=== PATIENT | male | born 1970 | race Caucasian/White ===

== ENCOUNTER 2018-07-13 04:59 | Inpatient (IN) ==
[2018-07-07 13:54] LABS: Appearance,Urine CLEAR; Bilirubin,Urine NEG (NEG); Color,Urine YELLOW; Glucose,Urine (UA) NEGATIVE (NEG); Leukocyte Esterase,Urine NEG /uL (NEG); Protein,Urine NEG (NEG); Specific Gravity,Urine 1.016 (1.000-1.035); Urine Blood NEG mg/dL (<0.03); Urobilinogen,Urine NEG (NEG)
[2018-07-07 15:24] LABS: Blood Urea Nitrogen 16 mg/dl (6-20)
[2018-07-07 15:40] LABS: Basophils # (Auto) 0 K/mcL (0.0-0.3); Basophils % (Auto) 0.6 % (0.0-2.0); Eosinophils # (Auto) 0.4 K/mcL (0.0-0.7); Granulocytes % (Auto) 48.5 % (38.0-78.0); Lymphocytes # (Auto) 2.2 K/mcL (1.5-4.8); Mean Cell Volume 89.1 fL (80.0-100.0); Mean Corpuscular HGB Conc 32.8 g/dL (31.0-36.0); Monocytes # (Auto) 0.6 K/mcL (0.1-0.9); Monocytes % (Auto) 9.9 % (1.0-12.0); Platelet Count 294 K/mcL (140-440); RBC 5.64 M/mcL (4.50-5.90); Red Cell Distribution Width 13.7 % (11.5-14.5)
[2018-07-13] MEDS ORDERED: ceFAZolin 1 GM VIAL IV SCH (05:00)
[2018-07-13] MEDS ORDERED: SCOPOLAMINE 1 PATCH PATCH TOPICAL ONE (06:00)
[2018-07-13] MEDS ORDERED: PHENYLEPHRINE 10 MG/ML VIAL IV ONE (07:25)
[2018-07-13] MEDS ORDERED: ROPIVACAINE HCL/PF 20 ML VIAL IJ ONE (07:25)
[2018-07-13] MEDS ORDERED: TRANEXAMIC ACID 1,000 MG/10 ML VIAL IV ONE ×3 (07:25→09:20)
[2018-07-13] MEDS ORDERED: FAMOTIDINE/PF 20 MG/2 ML VIAL IV ONE (07:25)
[2018-07-13] MEDS ORDERED: KETAMINE 100 MG/ML ML IV ONE (07:25)
[2018-07-13] MEDS ORDERED: ePHEDrine 50 MG/ML AMPUL IV ONE (07:25)
[2018-07-13] MEDS ORDERED: GLYCOPYRROLATE 0.2 MG/ML VIAL IV ONE (07:25)
[2018-07-13] MEDS ORDERED: MIDAZOLAM 5 MG/5 ML VIAL IV ONE (07:25)
[2018-07-13] MEDS ORDERED: LIDOCAINE HCL/PF 100 MG/5 ML SYRINGE IV ONE (07:25)
[2018-07-13] MEDS ORDERED: DEXAMETHASONE 10 MG/ML VIAL IV ONE (07:25)
[2018-07-13] MEDS ORDERED: ONDANSETRON 4 MG/2 ML VIAL IV ONE (07:25)
[2018-07-13] MEDS ORDERED: PROPOFOL 200 MG/20 ML VIAL IV ONE (07:25)
[2018-07-13] MEDS ORDERED: 0.9 % SODIUM CHLORIDE 9 ML, KETOROLAC 30 MG, ROPIVACAINE HCL/PF 49.5 ML, EPINEPHrine 0.... IJ ONE (07:47)
[2018-07-13] MEDS ORDERED: GENTAMICIN SULFATE 800 MG/20 ML VIAL IR ONE (08:06)
[2018-07-13] MEDS ORDERED: MEPERIDINE 25 MG/ML SYRINGE IV PRN (08:54)
[2018-07-13] MEDS ORDERED: FLUMAZENIL 0.1 MG/ML ML IV PRN (08:54)
[2018-07-13] MEDS ORDERED: ACETAMINOPHEN 1,000 MG/100 ML BOTTLE IV ONE (08:54)
[2018-07-13] MEDS ORDERED: LACTATED RINGERS 250 ML IV PRN (08:54)
[2018-07-13] MEDS ORDERED: PROMETHAZINE 25 MG/ML VIAL IV PRN (08:54)
[2018-07-13] MEDS ORDERED: NALOXONE HCL 0.4 MG/ML VIAL IV PRN (08:54)
[2018-07-13] MEDS ORDERED: METHOCARBAMOL 1,000 MG/10 ML VIAL IV PRN (08:54)
[2018-07-13] MEDS ORDERED: KETOROLAC 30 MG/ML VIAL IV PRN (08:54)
[2018-07-13] MEDS ORDERED: fentaNYL 100 MCG/2 ML VIAL IV PRN (08:54)
[2018-07-13] MEDS ORDERED: ONDANSETRON 4 MG/2 ML VIAL IV PRN ×2 (08:54→09:20)
[2018-07-13] MEDS ORDERED: BENZOCAINE/MENTHOL 1 LOZENGE PO PRN ×2 (08:54→09:20)
[2018-07-13] MEDS ORDERED: IPRATROPIUM/ALBUTEROL 3 ML AMPUL.NEB NEB PRN (08:54)
[2018-07-13] MEDS ORDERED: HYDROmorphone 2 MG/ML VIAL IV PRN (08:54)
[2018-07-13] MEDS ORDERED: LACTATED RINGERS 1,000 ML IV SCH (09:00)
[2018-07-13] MEDS ORDERED: ONDANSETRON 4 MG ODT TABLET SL PRN (09:20)
[2018-07-13] MEDS ORDERED: METHOCARBAMOL 750 MG TABLET PO PRN (09:20)
[2018-07-13] MEDS ORDERED: FLEETS ADULT ENEMA PR PRN (09:20)
[2018-07-13] MEDS ORDERED: POLYETHYLENE GLYCOL 3350 17 GM PACKET PO PRN (09:20)
[2018-07-13] MEDS ORDERED: HYDROcodone/APAP 10/325MG TABLET PO PRN (09:20)
[2018-07-13] MEDS ORDERED: BISACODYL 10 MG SUPP.RECT PR PRN (09:20)
[2018-07-13] MEDS ORDERED: MAGNESIUM HYDROXIDE 30 ML ORAL.SUSP PO PRN (09:20)
--- NOTE | 2018-07-13 09:20 | Brief Operative Note ---
Pre-op diagnosis: left knee osteoarthrits Post-op diagnosis: same Procedure: left total knee arthroplasty, hardware removal Grafts/Implants: Yes Anesthesia: spinal Complications: none Surgeon: Andrea Vines Supervisor Of Operations: Nataly Roy Estimated blood loss (cc): 200 Tourniquet Time (Minutes): 77 Specimens Removed/Pathology: none sent Condition: stable Disposition: PACU
--- NOTE | 2018-07-13 09:55 | Operative Note ---
DATE OF OPERATION: 07/13/2018 PREOPERATIVE DIAGNOSES: 1. Degenerative joint disease, left knee. 2. Left knee retained hardware. POSTOPERATIVE DIAGNOSES: 1. Degenerative joint disease, left knee. 2. Left knee retained hardware. PROCEDURES: 1. Left total knee arthroplasty. 2. Left knee hardware removal. SURGEON: Amanda Vines M.D. PACKAGE SEALER SURGEON: Nataly Roy PA-C ANESTHESIA: Spinal with LMA assist. ESTIMATED BLOOD LOSS: 200 mL COMPLICATIONS: None noted. SPECIMENS REMOVED: None. DRAINS: None. TOURNIQUET TIME: 77 minutes at 300 mmHg. IMPLANTS: DePuy CMW2 bone cement 20 grams x4, DePuy Attune tibial insert fixed bearing posterior stabilized size 8, 6 mm AOX, DePuy patella medialized dome 38 mm cemented AOX, DePuy Attune tibial fixed bearing size 6 cemented, DePuy Attune femoral posterior stabilized size 8 left cemented. INDICATIONS: The patient has had a long-standing history of worsening pain in the knee that has failed conservative treatment. Radiographs have confirmed advanced degenerative joint disease. After a long discussion about treatment options, the patient elected to proceed with a knee arthroplasty. The risks and benefits were discussed with the patient in detail including, but not limited to, the risks of anesthesia, problems with the heart or lungs related to anesthesia, infection, compromise or injury to the nerves and blood vessels, deep venous thrombosis, pulmonary embolism, pneumonia, continued pain after surgery, worsening pain or symptoms after surgery, swelling, loss of motion, instability, leg length discrepancy, and need for repeat surgery. DESCRIPTION OF PROCEDURE: The patient was seen in the pre-anesthesia waiting room where all questions were answered and the correct side and site were identified and marked. The patient was transferred to the operating room and administered the anesthetic and given pre-operative antibiotics. A time-out was then called. The extremity was prepped and draped, exsanguinated, and the tourniquet was inflated to 300 mmHg. A midline skin incision was then made with a standard medial parapatellar arthrotomy. Debridement of the menisci, ACL, and PCL was performed followed by balancing releases in the medial lateral plane. We then established intramedullary access to both the femur and tibia in a standard fashion. The femoral guide jacque was initially placed with the distal femoral guide, pinned into place, and the distal femoral cut was performed and checked with a flat plate. We then turned our attention to the tibia. I came down to the screw in the anterior medial tibia. This was a small frag head. We backed the screw out and removed it so we could access the intramedullary canal. The intramedullary guide was placed with the proximal tibial cutting block. The block was appropriately positioned off the affected side, varus and valgus was checked with the extra-medullary guide, and the block was pinned into place. The proximal tibial cut was performed and the tibia was prepared for the tibial implant with appropriate rotation. The tibia, femur, and posterior compartment were debrided of osteophytes, loose bodies, and meniscal fragments We then used the gap balancing technique to balance extension with the first two cuts and good balancing was obtained with a 10 millimeter gap block. We turned our attention back to the femur and used the referencing block and implant to size appropriately. Using the gap balancing technique for the flexion space we set our rotation of the femur off the tibial cut. Anesthesia gave the patient 1 gram of Tranexamic Acid via an intravenous route. We placed the 4 in 1 cutting block and made anterior, posterior, and chamfer cuts. Box plasty cuts were then made in a standard fashion for the posterior stabilized prosthesis. We then completed osteophyte release and posterior capsule release from the posterior compartment. Trials were placed and we chose the polyethylene insert thickness that provided the best stability in all planes. With the trials in place, we did a measured resection for a resurfacing patella. We sized the patella and placed the patella trial and performed a lateral facetectomy with the saw and rongeur. Good tracking was obtained. We removed all trials, irrigated and dried all cut surfaces. We cemented the components into place including tibia, femur and patella. We placed a trial liner and held the knee in full extension with the patella compressed while the cement cured. We then removed all excess cement and placed the final polyethylene tibiofemoral component. Irrigation with 3 liters of antibiotic saline was then performed using jet-lavage. We let the tourniquet down and coagulated bleeding vessels. We injected a 100 cubic centimeter volume including Ropivacaine 49.25 cubic centimeters at 5 milligrams per cubic centimeter, Ketorolac 30 milligrams, and Epinephrine 0.5 milligrams into 100 cubic centimeters volume of normal saline. We closed the retinaculum with #2 Stratafix and 0 Vicryl. We closed the subcutaneous tissue and skin in layers out to Dermabond on the skin. A sterile pressure dressing was applied. All needle and sponge counts were correct. The patient was transferred to the recovery room in stable condition. [email or web address]:[email or web address] Job ID: [id number] Doc ID: [id number] Amanda Vines MD
--- NOTE | 2018-07-13 10:19 | XRay Report ---
CLINICAL INFORMATION: Status post left total knee arthroplasty TECHNIQUE: AP and crosstable lateral left knee COMPARISON: None. FINDINGS: Status post left total knee arthroplasty. Anatomic alignment demonstrated. Mild postsurgical intra-articular and soft tissue gas IMPRESSION: Status post left total knee arthroplasty Interpreted and Authenticated by: Andrea Randle 07/13/18
[2018-07-13] MEDS: 0.9 % SODIUM CHLORIDE 1,000 ML IV SCH ×2 (12:23→17:18)
[2018-07-13] MEDS: KETOROLAC 30 MG/ML VIAL IV SCH ×3 (12:23→23:35)
[2018-07-13] MEDS: 0.9 % SODIUM CHLORIDE 10 ML SYRINGE IV SCH ×2 (13:40→21:32)
[2018-07-13] MEDS: ceFAZolin 1 GM VIAL IV SCH ×2 (14:56→21:37)
[2018-07-13] MEDS: ASPIRIN 325 MG ENTERIC COATED TABLET PO SCH (19:55)
[2018-07-13] MEDS: DOCUSATE SODIUM 100 MG CAPSULE PO SCH (19:55)
[2018-07-13] MEDS ORDERED: SENNOSIDES 1 TABLET PO SCH (21:00)
[2018-07-14] MEDS: 0.9 % SODIUM CHLORIDE 1,000 ML IV SCH ×2 (03:46→08:47)
[2018-07-14] MEDS: 0.9 % SODIUM CHLORIDE 10 ML SYRINGE IV SCH (04:25)
[2018-07-14] MEDS: KETOROLAC 30 MG/ML VIAL IV SCH ×2 (04:25→11:36)
--- NOTE | 2018-07-14 07:03 | Discharge Summary ---
Ortho Discharge - TKA - Patient Instructions Diet: Regular Diet Activity: ambulate with assistive device, weight bearing as tolerated Total Knee Protocol: For Total Knee: Start ROM FRANDY with stationary bike or rocking chair. Work on gaining full extension of knee. Posterior dislocation precautions provided. Hip abductor strengthening and gait training instructions provided. Apply Cryocuff as instructed. Dressing Care: May shower in 2 days, Other (dermabond) - Follow Up Plan Follow Up Appointments: Nataly Roy PA-C [Physician Assistant Manager [employer]] - 07/28/18 1:00 pm Disposition: Home, Self-Care Prognosis: Good Rehab Potential: Good I certify that the patient requires SNF services: No Overall status at discharge: patient is progressing back to baseline - Orders For Discharge Prescriptions: Aspirin [Ecotrin] 325 mg PO BID #60 tab.ec HYDROcodone/APAP 10/325MG [Leopold 10-325Mg] 1 - 2 tab PO Q4HP PRN #60 tab PRN Reason: Pain Level 3-6 Additional Discharge Orders: Physical Therapy at Discharge - TKA Location: None Selected Walker Location: None Selected
--- NOTE | 2018-07-14 07:05 | Orthopedic Progress Note ---
Subjective Patient information: Note initiated : 07/14/18 at 7:03 am Service Date, if different from initiated Date: [] Patient: Ronald Edgar 47 y/o M admitted on 07/13/18 for Left Total Knee Arthroplasty with Screw Removal. Chief Complaint: [POD #1 s/p left TKA Doing well, reports minimal pain. Denies CP, SOB, numbness, tingling, calf pain. Ambulating well] Objective Vital signs: Vital Signs Temp Pulse Resp BP BP Pulse Ox 07/14/18 06:30 97.4 F 74 16 106/64 96 07/14/18 03:30 97.9 F 73 20 98/59 96 07/13/18 23:38 98.4 F 77 20 103/59 94 07/13/18 18:44 98.2 F 118 H 22 105/64 93 07/13/18 16:19 97.7 F 82 16 112/72 94 07/13/18 13:40 97.6 F 86 16 108/71 94 07/13/18 12:05 90 120/86 98 07/13/18 11:35 83 118/74 96 07/13/18 11:05 84 125/73 98 07/13/18 10:50 79 121/73 97 07/13/18 10:35 85 122/75 97 07/13/18 10:20 97.3 F 85 12 119/70 94 07/13/18 10:10 97.1 F 87 13 107/61 98 07/13/18 09:55 97.1 F 76 15 128/54 98 07/13/18 09:54 76 16 120/51 98 07/13/18 09:47 79 16 132/55 98 07/13/18 09:40 97.0 F 78 16 140/58 100 Intake and Output 07/13/18 07/14/18 07/14/18 21:59 05:59 13:59 Intake Total 1400 1700 Output Total 1425 400 Balance -25 1300 Intake: IV 1000 Sodium Chloride 0.9% 1,000 ml @ 1000 125 mls/hr IV .Q8H [facility] Rx#: [id number] Oral 1400 700 Output: Void Amount 1425 400 Other: Meal Dinner Percent of Meal Consumed 100% Urine Appearance Clear Urine Color Straw Urine Odor Normal # Voids 1 Weight 182 lb Intake & Output: Intake & Output 07/13/18 07/14/18 07/14/18 21:59 05:59 13:59 Intake Total 1400 1700 Output Total 1425 400 Balance -25 1300 Weight 182 lb Intake: IV 1000 Sodium Chloride 0.9% 1,000 ml @ 1000 125 mls/hr IV .Q8H [facility] Rx#: [id number] Oral 1400 700 Output: Void Amount 1425 400 Other: Meal Dinner Percent of Meal Consumed 100% Urine Appearance Clear Urine Color Straw Urine Odor Normal # Voids 1 Incision: Yes healing, No draining, No red, No swollen, No inflamed, Yes clean and dry Incision clean and dry: Yes Dressing: Yes clean, Yes dry, Yes intact Weight bearing status: as tolerated Range of motion: full foot and ankle Neurological exam IM: Yes alert, Yes oriented X3, Yes motor sensory intact, Yes neurovascular intact Extremities exam IM: Yes normal capillary refill, Yes normal inspection, Yes Foot pink and warm, Yes neurovascular intact - Periperhal Pulses Peripheral pulses: 2+: dorsalis pedis (L), dorsalis pedis (R), posterior tibialis (L), posterior tibialis (R) - Labs CBC & BMP: 07/14/18 04:15 07/07/18 12:35 Labs: 07/14/18 07/07/18 04:15 12:35 Hgb 12.8 L 16.5 Hct 37.4 L 50.2 Assessment and Plan (1) Knee osteoarthritis POD #1 s/p left TKA: -d/c to home today -pain control -ASA 325mg BID x 4 weeks for DVT prophylaxis -PT -WBAT -f/u in 10-14 days for PO Status: Acute
[2018-07-14] MEDS: ASPIRIN 325 MG ENTERIC COATED TABLET PO SCH (08:49)
[2018-07-14] MEDS: DOCUSATE SODIUM 100 MG CAPSULE PO SCH (08:50)
[2018-07-14] MEDS ORDERED: BISOPROLOL 5 MG TABLET PO SCH (09:00)
[2018-07-14] MEDS ORDERED: ESCITALOPRAM 10 MG TABLET PO SCH (09:00)
== END 2018-07-14 13:35 | disposition home or self-care (01) | DRG 470 ==
LOC: MEDSUR 04:59
PROVIDERS: ADMIT Orthopaedic Surgery Sports Medicine; ATTEND Orthopaedic Surgery Sports Medicine